=== PATIENT | female | born 1955 | race African-American/Black ===

== ENCOUNTER 2016-09-26 18:24 | Emergency (ER) | payer BC ==
[2016-09-26] MEDS ORDERED: HYDROcodone/Acetaminophen 10/325 mg Tablet ONE (18:49)
[2016-09-26] MEDS ORDERED: Naproxen 500 MG TAB ONE (18:50)
[2016-09-26] MEDS ORDERED: AMOXicillin 250 MG CAP ONE (18:50)
== END 2016-09-26 19:00 | disposition home or self-care (01) ==
LOC: MADERS 18:24
DX: K04.7 Periapical abscess without sinus (principal); E03.9 Hypothyroidism, unspecified; E78.5 Hyperlipidemia, unspecified; I10 Essential (primary) hypertension; Z79.899 Other long term (current) drug therapy
CPT/HCPCS: 99282